=== PATIENT | male | born 1930 | race Caucasian/White ===

== ENCOUNTER 2019-09-18 22:39 | Emergency (ER) | payer MEDICARE ==
--- NOTE | 2019-09-18 23:31 | CT ---
CT Brain WO Con: 09/18/2019 10:58 PM CLINICAL HISTORY: Fall with head injury and confusion. IMAGING TECHNIQUE: Multiple CT images were obtained of the brain without IV contrast. COMPARISON: None. FINDINGS: Brain: No acute infarct, hemorrhage or hydrocephalus is present. The septum pellucidum and third ana paula tricle are midline. There is mild chronic small vessel white matter ischemic change. Ventricles: Normal. No hydrocephalus. Skull: Intact. Visualized Paranasal sinuses: Clear. Mastoid air cells:Clear. Extracranial soft tissues:Normal. IMPRESSION: No acute intracranial abnormality.
[2019-09-18 23:32] LABS: #Lymphocytes 0.9 thou/uL (1.20-3.40); #Monocytes 0.8 thou/uL (0.11-0.59); #Neutrophils 4.8 thou/uL (1.40-6.50); %Eosinophils 0.7 % (0.0-10.0); %Lymphocytes 13.2 % (21.0-51.0); %Monocytes 12.2 % (0.0-10.0); Hemoglobin 12.5 g/dL (14.0-18.0); Mean Corpuscular HGB CONC 32.2 g/dL (32.0-36.0); Mean Corpuscular Hemoglobin 32.3 pg (27.0-31.0); Mean Platelet Volume 7.4 fL (7.4-10.4); Platelet Count 159 thou/uL (130-400); RBC Distribution Width 12.6 % (11.5-14.5); Red Blood Cell (RBC) Count 3.88 mill/uL (4.70-6.10); White Blood Cell (WBC) Count 6.5 thou/uL (4.8-10.8)
--- NOTE | 2019-09-18 23:35 | CT ---
CT Cervical Spine WO Con Indication: Fall with neck pain COMPARISON: None. FINDINGS: Fracture: None. Spinal alignment: There is slight anterolisthesis of C2 on C3. There is slight retrolisthesis of C3 o n C4 and C4 on C5 which is likely degenerative in nature. Small amount of gas is seen within the left paraspinal soft tissues likely related to intravascular gas from IV placement. Craniocervical junction: Within normal limits. Vertebral body heights: Maintained. Cervical spine degenerative change: There is moderate multilevel spondylosis of the cervical spine. Lung apices: Clear. IMPRESSION: No acute osseous abnormality.
--- NOTE | 2019-09-18 23:35 | RAD ---
Chest AP view INDICATION: History of fall with chest pain COMPARISON: None FINDINGS: Lungs: The lungs are clear Cardiac silhouette: The cardiomediastinal silhouette appears within normal limits. Pulmonary vasculature: Normal Pleural spaces: No pleural effusion or pneumothorax is demonstrated. Upper abdomen: No abnormality seen. 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 Additional findings: There are mild vascular calcification involving the thoracic aortic arch. IMPRESSION: No acute cardiopulmonary abnormality.
[2019-09-18 23:44] LABS: ALT (SGPT) 17 U/L (8-55); AST (SGOT) 20 U/L (5-34); Albumin 3.7 g/dL (3.4-4.8); Alkaline Phosphatase 53 U/L (40-110); Anion Gap 15 mmol/L (10-20); BUN (Urea Nitrogen) 24 mg/dL (8.4-25.7); Bilirubin, Total 0.3 mg/dL (0.2-1.2); Calc. Creatinine Clearance 0 mL/min (70-130); Calcium 8.6 mg/dL (7.8-10.44); Carbon Dioxide 23 mmol/L (23-31); Chloride 105 mmol/L (98-107); Estimated GFR-MDRD 89; Globulin 2.4 g/dL (2.4-3.5); Glucose 120 mg/dL (83-110); Potassium 3.7 mmol/L (3.5-5.1); Protein, Total 6.1 g/dL (5.8-8.1); Sodium 139 mmol/L (136-145)
== END 2019-09-19 01:09 | disposition home or self-care (01) ==
LOC: ERS 22:39
DX: R56.9 Unspecified convulsions (principal); S00.01XA Abrasion of scalp, initial encounter; S41.119A Laceration without foreign body of unspecified upper arm, initial encounter; R55 Syncope and collapse; K21.9 Gastro-esophageal reflux disease without esophagitis; I25.10 Atherosclerotic heart disease of native coronary artery without angina pectoris; I10 Essential (primary) hypertension; Z86.73 Personal history of transient ischemic attack (TIA), and cerebral infarction without residual deficits; Z79.82 Long term (current) use of aspirin; Z79.899 Other long term (current) drug therapy; W18.11XA Fall from or off toilet without subsequent striking against object, initial encounter
CPT/HCPCS: 36415; 70450; 71045; 72125; 80053; 82550; 83605; 84484; 85025; 93005

== ENCOUNTER 2019-09-21 09:36 | Outpatient (CLI) | payer MEDICARE ==
--- NOTE | 2019-09-21 10:27 | RAD ---
XR Hip Rt 2-3 View History: Fall. Pain Comparison: None. 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 Mild degenerative disease pubic symphysis. No acetabular fractures appreciated. Right obturator ring is intact. The femoral head and neck are intact with small ring osteophyte. Small right hip joint effusion. Impression: Small right hip joint effusion without acute displaced fracture or malalignment. If the p atient is clinically unable to bear weight, MRI may be beneficial to evaluate for a trabecular microimpaction fracture.
== END 2019-09-21 09:37 | disposition home or self-care (01) ==
LOC: SCSRAD 09:36
PROVIDERS: ATTEND Psychiatry & Neurology Neurology
DX: R56.9 Unspecified convulsions (principal); M25.451 Effusion, right hip